=== PATIENT | male | born 1945 | race Caucasian/White ===

== ENCOUNTER 2023-03-21 06:14 | Day surgery (SDC) | payer MEDICARE, BC ==
[~2023-03-21] VITALS: Ht 170.2 cm; Wt 99.7 kg
[2023-03-21] VITALS (14 sets, daily range): BP systolic 78–1307; BP diastolic 43–110
[~2023-03-21 06:14] MED LIST: APHEN325 M1 PO; Aspirin EC650 MG PO; IBUP600 PO
[2023-03-21] MEDS ORDERED: Acetaminophen 500 MG Tab PO SCH ×2 (06:15→16:00)
[2023-03-21] MEDS ORDERED: Chlorhexidine Mouth Care 15 ML UDC MT SCH (06:15)
[2023-03-21] MEDS ORDERED: Tranexamic Acid 1,000 MG in NS 100 ML IV SCH (06:15)
[2023-03-21] MEDS ORDERED: OxyCODONE HCL 10 MG TABCR PO SCH (06:15)
[2023-03-21] MEDS ORDERED: Lactated Ringer's 1,000 ML IV SCH ×2 (06:15→07:50)
[2023-03-21] MEDS ORDERED: Ropivacaine 0.5% HCl/Pf 67.75 MG,EPINEPHrine HCL 0.25 MG,Ketorolac Tromethamine 15 MG,C... INFIL SCH (06:15)
[2023-03-21] MEDS ORDERED: CeFAZolin Sodium 2,000 MG in NS 50 ML IV SCH ×2 (06:15→15:30)
[2023-03-21] MEDS ORDERED: propofoL 60 ML IV ONE (06:55)
[2023-03-21] MEDS ORDERED: FentaNYL Citrate 50 MCG/ML 2 ML Injection ONE (06:55)
[2023-03-21] MEDS ORDERED: Lidocaine HCl 2% 20 ML MDV ONE (06:56)
[2023-03-21] MEDS ORDERED: EpiNEPhrine 1 MG/1 ML 1ML Vial ONE (06:56)
[2023-03-21] MEDS ORDERED: CeFAZolin Sodium 2,000 MG VIAL ONE ×2 (06:59→15:25)
[2023-03-21] MEDS ORDERED: Bupivacaine 0.5% HCl 5 MG/ML 30MLVIAL ONE (06:59)
[2023-03-21] MEDS ORDERED: FentaNYL Citrate 50 MCG/ML 2 ML Injection IV PRN ×3 (07:00)
[2023-03-21] MEDS ORDERED: Ondansetron HCl 2 MG / ML 2ML Vial IV PRN ×2 (07:00→07:45)
[2023-03-21] MEDS ORDERED: HYDROmorphone HCl/Pf 1MG SYR IV PRN ×2 (07:00→07:50)
[2023-03-21] MEDS ORDERED: Lidocaine HCl 1% 5 ML SYR INJ ONE (07:00)
[2023-03-21] MEDS ORDERED: Metoclopramide HCl 5MG / ML 2ML Vial IV PRN ×2 (07:00→07:45)
[2023-03-21] MEDS ORDERED: Promethazine HCl 25 MG Tab PO PRN (07:40)
[2023-03-21] MEDS ORDERED: Prochlorperazine Edisylate 10 mg Vial IV PRN (07:45)
[2023-03-21] MEDS ORDERED: OxyCODONE HCL 5 MG TAB PO PRN ×2 (07:45)
[2023-03-21] MEDS ORDERED: Bisacodyl 10 MG Supp PR PRN (07:45)
[2023-03-21] MEDS ORDERED: DiphenhydrAMINE HCL 25 MG Cap PO PRN (07:50)
[2023-03-21] MEDS ORDERED: FLU VACC QS2023-24(6MOS UP)/PF 60 MCG/0.5 ML SYRINGE IM SCH (07:50)
[2023-03-21] MEDS ORDERED: Magnesium Hydroxide Conc 10 ML UDC PO PRN (07:50)
--- NOTE | 2023-03-21 08:21 | NUR ---
03/21/23 0821 Summer Morton SPINAL NERVE BLOCK COMPLETED UPON ENTRY TO OR BY DR GUEVARA. PT POSITIONED ON HIS R SIDE. PT TOLERATED WELL.
[2023-03-21] MEDS ORDERED: propofoL 20 ML IV ONE ×3 (09:20→09:25)
[2023-03-21] MEDS ORDERED: Phenylephrine HCl 100 MCG/ML-NS 10MLSYR (1MG/10ML) ONE (09:23)
[2023-03-21] MEDS ORDERED: Ketorolac Tromethamine 15mg Vial IV SCH (12:00)
--- NOTE | 2023-03-21 13:23 | NUR ---
AQUACEL APPLIED OVER EXOFIN
--- NOTE | 2023-03-21 17:19 | NUR ---
DISCHARGE PT A&OX4, VSS/RA, JG PO, VOIDING, AMB FWW/GB/DRESSED WITH ASSIST BY , PAIN MANAGED PER EMAR, IV DC'D. DC INS PROVIDED. PT REP UNDERSTANDING THOSE INSTRUCTIONS. LEFT FLOOR VIA WC WITH SENIOR PAYROLL MANAGER TO GO HOME WITH WITH ALL PERSONAL POSSESSIONS INCLUDING DC PACKET, FWW FROM [facility] AND REP SCRIPTS ARE AT [facility], OR MAYBE AT [facility] - PT WILL CONFIRM AND GET THEM.
[2023-03-21] MEDS ORDERED: Docusate Sodium 100 MG Cap PO SCH (21:00)
[2023-03-22] MEDS ORDERED: Aspirin 81 MG Chew PO SCH (09:00)
== END 2023-03-21 16:58 | disposition home or self-care (01) ==
LOC: ORSCMMR 06:14 → ORD 07:30 → ORSCMMR 07:30 → SURS 11:08 → ORSCMMR 16:58 → ORD 04-25 10:45
PROVIDERS: Orthopaedic Surgery
PROC: 0SRB0JA Replacement of Left Hip Joint with Synthetic Substitute, Uncemented, Open Approach (ICD-10-PCS; principal; 2023-03-21 07:30)
DX: M16.12 Unilateral primary osteoarthritis, left hip (principal); Z96.642 Presence of left artificial hip joint; I10 Essential (primary) hypertension; E66.9 Obesity, unspecified; Z68.34 Body mass index [BMI] 34.0-34.9, adult
CPT/HCPCS: 72170; 97110; 97116; 97162; 97530; A9270; C1769; C1776; J0171; J0690; J0735; J1885; J2371; J2704; J2795; J3010; J7120